=== PATIENT | female | born 1965 | race Caucasian/White ===

== ENCOUNTER 2017-04-28 15:25 | Emergency (ER) | payer OTHER ==
[~2017-04-28] VITALS: Ht 157.5 cm; Wt 73.0 kg
[2017-04-28 15:29] VITALS: BP 141/97; PULSE 112; RESP 16; TEMP 98.4; O2SAT 96
[2017-04-28] MEDS ORDERED: LEXA20TA PO (15:42)
[2017-04-28] MEDS ORDERED: ALPR2TAB3 PO (15:42)
[2017-04-28] MEDS ORDERED: LAMI200T PO (15:42)
[2017-04-28] MEDS ORDERED: ACYC800T PO (17:15)
[2017-04-28] MEDS ORDERED: BACT800T5 PO (17:15)
--- NOTE | 2017-04-28 17:15 | PD ---
HPI Chief Complaint: Skin Problem Time Seen by Provider: 16:50 Travel History International Travel<30 days: No Contact w/Intl Traveler<30days: No Traveled to known affect area: No History of Present Illness HPI 51-year-old female presents to the emergency room for evaluation of a rash to her left neck region since yesterday. Rash is painful. No itching or burning. Pain radiates into her neck and ear. She believes she was bitten by a bug because of the acute onset of symptoms. While walking next to a plant yesterday , she felt something pinch her and then noticed swelling, pain, and bumps after that. She took ibuprofen yesterday for the pain. Patient has not taken anything today because she has not eaten food. She states her neck is sore when she swallows. No fever, chills, nausea, or vomiting. Patient also reports headache from falling off her horse 5 days ago. She landed directly on the back of her head. There is no loss of consciousness. No nausea or vomiting. States since then she has had a mild headache. No changes in thinking or confusion. She is not on blood thinners. She also complains of a small red, painful pimple to her left anglican that has been there for 2 weeks. Patient squeezed it and made it worse and is concerned that it is draining into her neck. PFSH Past Medical History Anxiety: Yes Depression: Yes Medical other: Yes (VERTIGO) ?: Not Past Surgical History Cholecystectomy: Yes Other Surgery: Yes (L BREAST SURGERY) Social History Alcohol Use: No Tobacco Use: No Substance Use: No Allergies-Medications (Allergen,Severity, Reaction): Coded Allergies: No Known Allergies (Unverified , 04/28/17) Reported Meds & Prescriptions Reported Meds & Active Scripts Active Reported Alprazolam 2 Mg Tab 2 Mg PO HS PRN Lexapro (Escitalopram Oxalate) 20 Mg Tab 60 Mg PO DAILY Lamictal (Lamotrigine) 200 Mg Tab 400 Mg PO HS Review of Systems Except as stated in HPI: all other systems reviewed are Neg Physical Exam Narrative GENERAL: Well-nourished, well-developed female in no acute distress. Afebrile. Ambulatory. SKIN: Focused skin assessment warm/dry. There are 3 skin colored papules to the left lateral neck just below the ear. They are tender to palpation. No erythema. No lymphangitis. No induration, fluctuance, drainage, or excoriations. The left submandibular lymph node is tender and slightly enlarged. There is an indurated area in the left anglican which measures about 1 cm in diameter. It is fluctuant but there is no pointing or drainage. There is a zone of inflammation around it but no lymphangitis. HEAD: Normocephalic. EYES: No scleral icterus. No injection or drainage. ENT: Mucosa pink and moist. No erythema or exudates. No uvular edema. No uvular , palatal, or tonsillar deviation. Airway patent. Nasal turbinates appear normal without nasal blood, purulent drainage or septal hematoma. EARS: Bilateral pinnae and external canals appear within normal limits. Bilateral tympanic membranes without erythema, dullness or perforation. No hemotympanum. NECK: Supple, trachea midline. No JVD or lymphadenopathy. CARDIOVASCULAR: Regular rate and rhythm without murmurs, gallops, or rubs. RESPIRATORY: Breath sounds equal bilaterally. No accessory muscle use. NEUROLOGICAL: Awake and alert. Cranial nerves II through XII intact. Motor and sensory grossly within normal limits. Five out of 5 muscle strength in all muscle groups. Normal speech. Data Data Last Documented VS Vital Signs Date Time Temp Pulse Resp B/P Pulse Ox O2 Delivery O2 Flow Rate FiO2 04/28/17 15:29 98.4 112 16 141/97 96 MDM Medical Decision Making Medical Screen Exam Complete: Yes Emergency Medical Condition: Yes Medical Record Reviewed: Yes Differential Diagnosis Shingles, folliculitis, abscess, cellulitis Narrative Course 51-year-old female presents to the emergency room for evaluation of a painful rash to her left lateral neck since yesterday. Patient thought she got bit by a bug because of the acute onset of symptoms. Physical exam reveals 3 skin colored papules to the left lateral neck just below the ear. They are tender to palpation. No erythema. No lymphangitis. No induration, fluctuance, drainage, or excoriations. The left submandibular lymph node is tender and slightly enlarged. Throat is clear without redness or edema. Ear is without evidence of infection. There does not appear to be any bacterial skin infection. Given painful rash, I have concern for shingles. Patient will be placed on acyclovir. Concerning her head injury 5 days ago, [place] CT rule excludes need for imaging at this time. There are no focal neurological deficits. She does have a small, developing abscess to her left anglican that is spontaneously draining purulent fluid. It is mild without significant erythema. No lymphangitis. For this patient will be placed on Bactrim. Patient was told to follow up with a primary care physician or return for worsening symptoms. She understands and agrees to plan. Diagnosis Primary Impression: Shingles Qualified Code: B02.9 - Herpes zoster without complication Additional Impressions: Head injury Qualified Code: S09.90XA - Head injury, initial encounter Abscess Referrals: Primary Care Physician Patient Instructions: Abscess (ED), General Instructions, Head Injury (ED), Shingles (ED) Additional Instructions: Rest and drink plenty of fluids. Take acyclovir as directed, until gone. Follow up with a primary care physician. Return to emergency room for worsening symptoms, as discussed. Med/Other Pt SpecificInfo: Prescription(s) given Disposition: 01 DISCHARGE HOME Condition: Stable Lindy Morales Apr 28, 2017 17:15
[2017-04-28 17:29] VITALS: BP 123/79
== END 2017-04-28 17:37 | disposition home or self-care (01) ==
LOC: PHEFT 15:25
DX: B02.9 Zoster without complications (principal); S09.90XA Unspecified injury of head, initial encounter; R42 Dizziness and giddiness; V80.010A Animal-rider injured by fall from or being thrown from horse in noncollision accident, initial encounter; Y93.52 Activity, horseback riding; Y92.9 Unspecified place or not applicable; Y99.8 Other external cause status
CPT/HCPCS: 99284

== ENCOUNTER → 2017-08-12 | Day surgery (SDC) | payer OTHER ==
[~2017-08-12] VITALS: Ht 157.5 cm; Wt 72.0 kg
[~2017-08-12] MED LIST: ACETAMINOPHEN 325 MG TAB PO PRN; ALPR2TAB3 PO; CHLORHEXIDINE GLUCONATE 2 % 1 PACK (2 CLOTHS) TOPICAL PRN; CYCL1TAB29 PO; CYMB60CA PO; FIORINAL2 PO; HYALURONIDASE/LIDOCAINE/EPINEPHRINE/BUPIVACAINE 6 ML SYR ONE; HYALURONIDASE/LIDOCAINE/EPINEPHRINE/BUPIVACAINE 6 ML SYR RIGHT EYE ONE; INSULIN HUMAN REGULAR 1,000 UNITS/10 ML VIAL SQ PRN; LACTATED RINGER'S 1000 ML IV PRN; LAMI200T PO; LEXA20TA PO; LIDOCAINE HCL 1% PF 30 ML VIAL ONE; LIDOCAINE HCL 2% PF 5 ML VIAL ONE; MECL12.574 PO; METOPROLOL TARTRATE 25 MG TAB PO PRN; POVIDONE IODINE 5% (ANTISEPSIS KIT) 4 APPLICATIONS EACH NARE PRN; PROPARACAINE HCL 0.5% OPHT SOLN 15 ML BTL RIGHT EYE ONE; PROPOFOL 200 MG/20 ML AMP ONE; SODIUM CHLORID 0.9% 500 ML INJ 500 ML ONE; SODIUM CHLORID 0.9% 500 ML IV PRN; TOBRAMYCIN/DEXAMETHASONE OPTH OINT 3.5 GM TUBE ONE; [UNRECOGNIZED DRUG - CODE] PO
[2017-08-12] MEDS: TROPICAMIDE 1% OPHT SOLN 15 ML BTL RIGHT EYE SCH ×4 (07:50→08:05)
[2017-08-12] MEDS: PHENYLEPHRINE HCL 10% OPTH SOLN 5 ML BTL RIGHT EYE SCH ×4 (07:50→08:05)
[2017-08-12] MEDS: CYCLOPENTOLATE HCL 1% OPHT SOLN 2 ML BTL RIGHT EYE SCH ×4 (07:50→08:05)
[2017-08-12 08:00] VITALS: PULSE 81
[2017-08-12 08:25] VITALS: PULSE 87
[2017-08-12 08:35] VITALS: PULSE 94
[2017-08-12 09:50] VITALS: BP 137/64; PULSE 77; RESP 16; TEMP 98.5; O2SAT 98
--- NOTE | 2017-08-12 12:46 | MP ---
cc: TESFAYE BEAR M.D. [facility] #: [id number] DATE: 08/12/2017 PREOPERATIVE DIAGNOSIS: Visually significant cataract right eye. POSTOPERATIVE DIAGNOSIS: Visually significant cataract right eye. OPERATION: Phacoemulsification with posterior chamber lens implantation, right eye. SURGEON: Tesfaye Bear MD ANESTHESIA: Retrobulbar with MAC. COMPLICATIONS: None. PROCEDURE: After informed consent was obtained, the patient was brought into the operative suite and placed on appropriate monitors by the Anesthesia Service. The patient had received a prior retrobulbar injection of local anesthetic by the Anesthesia Service in the holding area. The patient's operative eye was then prepped and draped in the usual sterile fashion. A wire lid speculum was placed. A paracentesis incision was made in the peripheral cornea with a 1 mm jose manuel keratome. The anterior chamber was filled with viscoelastic. The anterior chamber was then entered through a stepped, clear corneal incision using a sharp 3 mm jose manuel keratome. A circular tear capsulorrhexis was then made with a bent needle cystitome. Following hydrodissection of the lens nucleus with balanced saline, phacoemulsification of the nucleus was performed using a modified chopping technique. The remaining cortex was removed with irrigation/aspiration. The prior two procedures were both performed using the handpieces of the [employer] phaco unit. The capsular bag was then filled with viscoelastic. The intraocular lens was then injected into the capsular bag and positioned. The type of intraocular lens and its power can be found elsewhere in this chart. The remaining viscoelastic was then removed from the anterior chamber with the IA handpiece. The anterior chamber was reformed with balanced saline. The wound was then closed securely with stromal hydration. It was found to be watertight to an intraocular pressure of at least 30 mmHg by palpation. A small amount of balanced salt solution was then removed through the paracentesis site and the intraocular pressure at the end of the case was approximately 20 by palpation. All drapes were then removed. TobraDex ointment was then placed in the eye, which was closed beneath a semi-pressure patch dressing. The patient tolerated this procedure well and left the operating room awake and alert. The patient is to follow-up in my office in the morning. Tesfaye Bear MD [facility]/SSB /10:01 AM /12:36 PM
== END | disposition home or self-care (01) ==
LOC: PHSDC 07:14
PROVIDERS: ATTEND Optometrist Occupational Vision
DX: H25.811 Combined forms of age-related cataract, right eye (principal); F32.9 Major depressive disorder, single episode, unspecified; G43.909 Migraine, unspecified, not intractable, without status migrainosus; R42 Dizziness and giddiness; F17.210 Nicotine dependence, cigarettes, uncomplicated; Z79.899 Other long term (current) drug therapy
CPT/HCPCS: J7040; V2632

== ENCOUNTER 2018-05-20 12:13 | Inpatient (IN) ==
[2018-05-20] MEDS ORDERED: Heparin 10,000 UNITS/10 ML Vial (for IV use) IV.PUSH STA (12:18)
[2018-05-20] MEDS ORDERED: fentaNYL Citrate Inj 100 MCG/2 ML Ampul ONE (12:23)
[2018-05-20] MEDS ORDERED: Heparin/NS PF Inj 1,500 ML ONE (12:23)
[2018-05-20] MEDS ORDERED: Heparin 10,000 UNITS/10 ML Vial (for IV use) ONE (12:23)
--- NOTE | 2018-05-20 12:28 | ED ---
HPI General Chief Complaint: STEMI Alert Stated Complaint: Stemi/Evac Source: patient Mode of arrival: EMS Limitations: no limitations History of Present Illness HPI narrative: 3-year-old female complaint of chest pain. Patient states the pain started about 45 minutes prior to arrival. Patient states the pain is severe substernal pressure and sharp pain with radiation to the neck. Patient denies any history of CAD. Patient states that she had nausea diaphoresis with the chest pain. Patient denies any cough congestion fever chills. EMS was called. EKG was done by EMS and show mild ST elevation in inferior leads. STEMI alert was called from the field. Patient was brought in for evaluation. complaint: chest pain Complete Quality Measures for STEMI Alert Patients STEMI Alert: Yes Onset (ago): minute(s) (45) Time: 12:23 Duration: constant Onset: during rest Pain location: substernal Severity: moderate Severity scale (1-10): 7 Quality: aching, heaviness and sharp Pain radiation: neck Relieving factors: nitroglycerin and remaining still Exacerbating factors: nothing Context: other Associated symptoms: diaphoresis Treatments prior to arrival chest pain: aspirin, nitroglycerin and oxygen Related Data Home Medications Medication Instructions Recorded Confirmed alprazolam 1 mg PO BID 05/20/18 05/20/18 [id number]-[id number]-[id number] 1 cap PO Q4H PRN MDD 25 05/20/18 05/20/18 [Fioricet] duloxetine [Cymbalta] 60 mg PO DAILY 05/20/18 05/20/18 lamotrigine [Lamictal] 400 mg PO HS 05/20/18 05/20/18 meclizine 25 mg PO DAILY PRN 05/20/18 05/20/18 mirtazapine 45 mg PO DAILY 05/20/18 05/20/18 quetiapine 50 mg PO HS 05/20/18 05/20/18 Allergies Allergy/AdvReac Type Severity Reaction Status Date / Time No Known Allergies Allergy Verified 05/20/18 12:23 Review of Systems Except as stated in HPI: all other systems reviewed are negative [facility] Medical History Medical History Anxiety (Acute) Bipolar 1 disorder (Acute) Hypercholesterolemia (Acute) Surgical History Surgical History History of cholecystectomy (Acute) Social History Social History Substance History: No History of Abuse Second Hand Smoke Exposure: Yes Smoking Status: Current some day smoker Tobacco Type: Cigarettes How Often Do You Have a Drink Containing Alcohol: Never Recent Travel in [facility] within the Last 8 Weeks: No Recent Out of Country Travel within the Last 8 Weeks: No Exam Narrative Exam Narrative: GENERAL: Well-nourished, well-developed patient. SKIN: Focused skin assessment warm/dry. HEAD: Normocephalic. EYES: No scleral icterus. No injection or drainage. NECK: Supple, trachea midline. No JVD or lymphadenopathy. CARDIOVASCULAR: Regular rate and rhythm without murmurs, gallops, or rubs. RESPIRATORY: Breath sounds equal bilaterally. No accessory muscle use. GASTROINTESTINAL: Abdomen soft, non-tender, nondistended. MUSCULOSKELETAL: No cyanosis, or edema. BACK: Nontender without obvious deformity. No CVA tenderness. Neurologic exam normal. Course Initial Documented Vital Signs Temperature 99 F 05/20/18 12:15 Pulse Rate 100 H 05/20/18 12:15 Respiratory Rate 24 05/20/18 12:15 Blood Pressure 145/86 H 05/20/18 12:15 Pulse Oximetry 97 05/20/18 12:15 Last Documented Vital Signs Temperature 98.4 F 05/21/18 11:00 Pulse Rate 87 05/21/18 13:00 Respiratory Rate 16 05/21/18 11:00 Blood Pressure 135/65 05/21/18 11:00 Pulse Oximetry 94 L 05/21/18 11:00 Medical Decision Making MDM Narrative Medical decision making narrative: 53-year-old female with chest pain. EKG shows mild ST elevation in 2 3 and aVF. STEMI alert was called. Patient was given Nitropaste 1 inch on chest wall. Heparin 4000 units IV. Patient was given aspirin [address] to the ED by EMS. Patient also was given nitroglycerin sublingually and morphine IV by EMS on the way to the ED. Patient emergently transported to [facility]. Dr. Zamora accepted the transfer. Lab Data Result diagrams: 05/21/18 05:39 05/21/18 05:39 Lab Results 05/20/18 05/20/18 05/20/18 Range/Units 12:25 12:25 12:25 WBC (4.0-11.0) th/mm3 RBC (4.00-5.30) mil/mm3 Hgb (11.6-15.3) gm/dL POC Hgb (Calc) 13.9 (11.6-15.3) g/dL Hct (35.0-46.0) % POC Hct 41.0 (35-46.0) % MCV (80.0-100.0) fL MCH (27.0-34.0) pg MCHC (32.0-36.0) % RDW (11.6-17.2) % Plt Count (150-450) th/mm3 MPV (7.0-11.0) fL Neut % (Auto) (16.0-70.0) % Lymph % (Auto) (9.0-44.0) % [place] % (Auto) (0.0-8.0) % Eos % (Auto) (0.0-4.0) % Baso % (Auto) (0.0-2.0) % Neut # (Auto) (1.8-7.7) th/mm3 Lymph # (Auto) (1.0-4.8) th/mm3 [place] # (Auto) (0.0-0.9) th/mm3 Eos # (Auto) (0.0-0.4) th/mm3 Baso # (Auto) (0.0-0.2) th/mm3 WBC Differential Differential Comment PT 9.8 (9.8-11.6) sec INR 1.0 Ratio APTT 23.8 L (24.3-30.1) sec POC Sodium 141 (137-144) mmol/L Sodium 142 (136-145) meq/L POC Potassium 4.9 (3.6-5.0) mmol/L Potassium 4.9 (3.5-5.1) meq/L POC Chloride 105 (102-111) mmol/L Chloride 110 H (98-107) meq/L Carbon Dioxide 23.1 (21.0-32.0) meq/L Anion Gap 9 (5-15) meq/L POC BUN 11 (5-21) mg/dL BUN 11 (7-18) mg/dL Creatinine 0.74 (0.50-1.00) mg/dL POC Creatinine 0.7 (0.6-1.3) mg/dL Estimated GFR 82 L (>89) mL/min POC Glucose 111 H (68-110) mg/dL Random Glucose 109 H (74-106) mg/dL Calcium 8.3 L (8.5-10.1) mg/dL Magnesium 2.0 (1.5-2.5) mg/dL Total Bilirubin 0.2 (0.2-1.0) mg/dL AST 10 L (15-37) U/L ALT 15 (10-53) U/L Alkaline Phosphatase 96 (45-117) U/L Total Creatine Kinase 50 (26-192) U/L Troponin I Less than 0.02 L (0.02-0.05) ng/mL B-Natriuretic Peptide (0-100) pg/mL Total Protein 6.6 (6.4-8.2) g/dL Albumin 3.2 L (3.4-5.0) g/dL 05/20/18 05/20/18 05/21/18 Range/Units 12:25 12:25 05:39 WBC 14.2 H 12.4 H (4.0-11.0) th/mm3 RBC 4.83 4.73 (4.00-5.30) mil/mm3 Hgb 14.1 13.8 (11.6-15.3) gm/dL POC Hgb (Calc) (11.6-15.3) g/dL Hct 43.3 41.7 (35.0-46.0) % POC Hct (35-46.0) % MCV 89.6 88.3 (80.0-100.0) fL MCH 29.3 29.2 (27.0-34.0) pg MCHC 32.7 33.0 (32.0-36.0) % RDW 13.5 13.4 (11.6-17.2) % Plt Count 345 286 (150-450) th/mm3 MPV 7.9 7.6 (7.0-11.0) fL Neut % (Auto) 67.7 60.1 (16.0-70.0) % Lymph % (Auto) 24.1 31.8 (9.0-44.0) % [place] % (Auto) 5.9 4.7 (0.0-8.0) % Eos % (Auto) 1.8 2.7 (0.0-4.0) % Baso % (Auto) 0.5 0.7 (0.0-2.0) % Neut # (Auto) 9.6 H 7.5 (1.8-7.7) th/mm3 Lymph # (Auto) 3.4 4.0 (1.0-4.8) th/mm3 [place] # (Auto) 0.8 0.6 (0.0-0.9) th/mm3 Eos # (Auto) 0.3 0.3 (0.0-0.4) th/mm3 Baso # (Auto) 0.1 0.1 (0.0-0.2) th/mm3 WBC Differential . . Differential Comment Auto diff final Auto diff final PT (9.8-11.6) sec INR Ratio APTT (24.3-30.1) sec POC Sodium (137-144) mmol/L Sodium (136-145) meq/L POC Potassium (3.6-5.0) mmol/L Potassium (3.5-5.1) meq/L POC Chloride (102-111) mmol/L Chloride (98-107) meq/L Carbon Dioxide (21.0-32.0) meq/L Anion Gap (5-15) meq/L POC BUN (5-21) mg/dL BUN (7-18) mg/dL Creatinine (0.50-1.00) mg/dL POC Creatinine (0.6-1.3) mg/dL Estimated GFR (>89) mL/min POC Glucose (68-110) mg/dL Random Glucose (74-106) mg/dL Calcium (8.5-10.1) mg/dL Magnesium (1.5-2.5) mg/dL Total Bilirubin (0.2-1.0) mg/dL AST (15-37) U/L ALT (10-53) U/L Alkaline Phosphatase (45-117) U/L Total Creatine Kinase (26-192) U/L Troponin I (0.02-0.05) ng/mL B-Natriuretic Peptide 5 (0-100) pg/mL Total Protein (6.4-8.2) g/dL Albumin (3.4-5.0) g/dL 05/21/18 Range/Units 05:39 WBC (4.0-11.0) th/mm3 RBC (4.00-5.30) mil/mm3 Hgb (11.6-15.3) gm/dL POC Hgb (Calc) (11.6-15.3) g/dL Hct (35.0-46.0) % POC Hct (35-46.0) % MCV (80.0-100.0) fL MCH (27.0-34.0) pg MCHC (32.0-36.0) % RDW (11.6-17.2) % Plt Count (150-450) th/mm3 MPV (7.0-11.0) fL Neut % (Auto) (16.0-70.0) % Lymph % (Auto) (9.0-44.0) % [place] % (Auto) (0.0-8.0) % Eos % (Auto) (0.0-4.0) % Baso % (Auto) (0.0-2.0) % Neut # (Auto) (1.8-7.7) th/mm3 Lymph # (Auto) (1.0-4.8) th/mm3 [place] # (Auto) (0.0-0.9) th/mm3 Eos # (Auto) (0.0-0.4) th/mm3 Baso # (Auto) (0.0-0.2) th/mm3 WBC Differential Differential Comment PT (9.8-11.6) sec INR Ratio APTT (24.3-30.1) sec POC Sodium (137-144) mmol/L Sodium 141 (136-145) meq/L POC Potassium (3.6-5.0) mmol/L Potassium 4.0 D (3.5-5.1) meq/L POC Chloride (102-111) mmol/L Chloride 106 (98-107) meq/L Carbon Dioxide 27.3 (21.0-32.0) meq/L Anion Gap 8 (5-15) meq/L POC BUN (5-21) mg/dL BUN 8 (7-18) mg/dL Creatinine 0.64 (0.50-1.00) mg/dL POC Creatinine (0.6-1.3) mg/dL Estimated GFR Greater than 89 (>89) mL/min POC Glucose (68-110) mg/dL Random Glucose 88 (74-106) mg/dL Calcium 9.2 D (8.5-10.1) mg/dL Magnesium (1.5-2.5) mg/dL Total Bilirubin (0.2-1.0) mg/dL AST (15-37) U/L ALT (10-53) U/L Alkaline Phosphatase (45-117) U/L Total Creatine Kinase (26-192) U/L Troponin I (0.02-0.05) ng/mL B-Natriuretic Peptide (0-100) pg/mL Total Protein (6.4-8.2) g/dL Albumin (3.4-5.0) g/dL Discharge Plan Discharge Disposition Patient Disposition: 30 Still Patient Discharge Condition Condition: Stable Discharge Order Discharge Orders: Discharge Order (Routine); Ordered 05/21/18 Ordered By: Zahira Rg Discharge Details Discharge Comment: chest pain Discharge Problem: ST elevation (STEMI) myocardial infarction Physicians Team ED Provider: Simon Adam Primary Care Provider: Primary Care Slaone Goyal Attending Provider: Eliezer Gonzalez Discharge Interventions Interventions: ED Discharge Assessment Last Done: 05/20/18 13:04 Status ED Status: Left Department Discharge Information Discharge Date/Time: 05/21/18 12:33
[2018-05-20] MEDS ORDERED: Sod Chloride 0.9% Inj 1,000 ML IV.SIG SCH (12:30)
[2018-05-20] MEDS ORDERED: Lidocaine PF 1% Inj 30 ML Vial ONE (12:31)
[2018-05-20 12:46] LABS: Baso # (Auto) 0.1 th/mm3 (0.0-0.2); Baso % (Auto) 0.5 % (0.0-2.0); Eos # (Auto) 0.3 th/mm3 (0.0-0.4); Eos % (Auto) 1.8 % (0.0-4.0); Hematocrit 43.3 % (35.0-46.0); Hemoglobin 14.1 gm/dL (11.6-15.3); Lymph # (Auto) 3.4 th/mm3 (1.0-4.8); Lymph % (Auto) 24.1 % (9.0-44.0); Mean Corpuscular HGB Conc 32.7 % (32.0-36.0); Mean Corpuscular Hemoglobin 29.3 pg (27.0-34.0); Mean Corpuscular Volume 89.6 fL (80.0-100.0); Mean Platelet Volume 7.9 fL (7.0-11.0); Mono # (Auto) 0.8 th/mm3 (0.0-0.9); Mono % (Auto) 5.9 % (0.0-8.0); Neut # (Auto) 9.6 th/mm3 (1.8-7.7); Neut % (Auto) 67.7 % (16.0-70.0); Platelet Count 345 th/mm3 (150-450); Red Blood Count 4.83 mil/mm3 (4.00-5.30); Red Cell Distribution Width 13.5 % (11.6-17.2); White Blood Count 14.2 th/mm3 (4.0-11.0)
[2018-05-20 12:55] LABS: Activated Partial Thrombo Time 23.8 sec (24.3-30.1); Prothrombin Time 9.8 sec (9.8-11.6)
--- NOTE | 2018-05-20 12:59 | MB ---
cc: Rodolfo Zamora MD DATE: 05/20/2018 REASON FOR CONSULTATION: ST elevation AL. HISTORY OF PRESENT ILLNESS: This is a 53-year-old female. She has no prior history of known heart disease, only a history of depression. She now presents with symptoms of acute onset of substernal chest pain. Upon arrival to the emergency department, she was found to have inferior ST elevation with ongoing chest pain symptoms, radiation to the jaw and the left arm, associated with diaphoresis, shortness of breath, and nausea. ST elevation myocardial infarction alert was initiated. PAST MEDICAL HISTORY: Anxiety, bipolar disorder and hyperlipidemia. SOCIAL HISTORY: Denies any tobacco, alcohol or drug use. FAMILY HISTORY: There is a family history of early coronary disease or sudden cardiac . REVIEW OF SYSTEMS: A 12-point review of systems was performed, negative unless otherwise noted in history of present illness. PHYSICAL EXAMINATION: GENERAL: The patient is in moderate distress. HEENT: Shows pupils reactive to light and accommodation. Extraocular movements are intact. NECK: No elevation of jugular venous distention. No thyromegaly. No lymphadenopathy. No carotid bruits. LUNGS: Clear to auscultation bilaterally. CARDIOVASCULAR: Regular rate and rhythm without murmurs, rubs or gallops. ABDOMEN: Nontender, nondistended with good bowel sounds. No hepatosplenomegaly. EXTREMITIES: No clubbing, cyanosis or edema. Good peripheral pulses. NEUROLOGIC: Cranial nerves intact. Motor, sensory grossly intact. LABORATORY DATA: Pending. ELECTROCARDIOGRAM: Inferior ST elevation, normal sinus rhythm. ASSESSMENT: 1. ST elevation myocardial infarction. 2. Depression and anxiety disorder. PLAN: Risks, benefits and alternatives were discussed with the patient. The patient was agreeable to emergent cardiac catheterization. No bleeding complications noted. We will initiate guideline directed medical therapy and 2-D echocardiogram. Rodolfo Zamora MD [place]/[facility] , 12:39 PM , 12:57 PM
[2018-05-20] MEDS ORDERED: Atropine Inj 1 MG/ML Vial IV.PUSH PRN (13:05)
[2018-05-20] MEDS ORDERED: Lidocaine 1% Inj 50 ML Vial INFILTRATN PRN (13:05)
[2018-05-20 13:06] LABS: Alanine Aminotransferase 15 U/L (10-53); Albumin 3.2 g/dL (3.4-5.0); Anion Gap 9 meq/L (5-15); Aspartate Aminotransferase 10 U/L (15-37); Blood Urea Nitrogen 11 mg/dL (7-18); Calcium 8.3 mg/dL (8.5-10.1); Carbon Dioxide 23.1 meq/L (21.0-32.0); Chloride 110 meq/L (98-107); Glomerular Filtration Rate 82 mL/min (>89); Glucose,Random 109 mg/dL (74-106); Potassium 4.9 meq/L (3.5-5.1); Sodium 142 meq/L (136-145)
[2018-05-20 13:10] LABS: Alkaline Phosphatase 96 U/L (45-117); Total Protein 6.6 g/dL (6.4-8.2)
[2018-05-20 13:11] LABS: Creatine Kinase 50 U/L (26-192)
--- NOTE | 2018-05-20 13:33 | CATHPROC ---
[facility] HIS Report Study Information Study Number Admission Scheduled Start Study Start [id number] May 20 2018 12:13PM 05/20/2018 May 20 2018 12:31PM [place] [facility] Cardiac Catheterization Admit Source Facility Department Emergency department [facility] Physician and Clinical Staff Initial Rodolfo Richey Marker HandBreann Mills,RN Marker Handjoao Hu RN, Donta Recorder Michelle Lanza,RT(R) (BS) Scrub Yolanda Tubbs,RT(R) Procedures Performed Procedure Location (Site) Vessel Name Angiogram LV AO Arch (A1) Aorta Angiogram LV LV Ventricle Coronary Angiograms LCA Left Coronary Coronary Angiograms RCA Right Coronary L Heart Cath Equipment Time Community Cultural Development Officer Description Size Mfg Part Number Used/Scraped COPILOT VALVE, BLEEDBACK [id number] 12:41 [employer] Used CONTROL *[id number] TRANSDUCER, TRUWAVE [id number] 12:41 Digitick ESTEBAN * Used W/STOCKCOCK *[id number] [phone] *[id number] [id number] *[id number] 12:41 payleven BLANKET,WARM AIR CCL * Used *[id number] 12:41 [employer]leven PACK, CCL CUSTOM * Used *[id number] 12:41 payleven SUPPORT, ARTERIAL ADULT 19458 *[id number] Used [id number] 12:41 [employer] PACER PEN, SKIN DUAL W/ RULER * Used *[id number] 12:43 MEDTRONIC JL 3.5 DXTERITY CATHETER FR 5 Used *[id number] 12:43 MEDTRONIC JR 5.0 DXTERITY CATHETER fr 5 [id number] Used BAND, RADIAL COMPRESSION TR [id number] 13:01 [employer] MEDICAL 24CM Used SHORT 24 *[id number] BAND, RADIAL COMPRESSION TR [id number] 13:02 [employer] MEDICAL 24CM Used SHORT 24 *[id number] SHEATH, FR6 RADIAL PRELUDE 12:41 [employer] Player FR 6 [id number] Used EASE 11CM [id number] 12:41 [employer] Player WIRE, EXCHANGE 260CM 3MMJ 260CM Used *[id number] 12:41 NAMIC MANIFOLD, 4 PORT * Used *[id number] [id number] 12:57 NAMIC TUBING, HIGH PRESSURE 20" 20" Used *[id number] 12:41 NYCOMED OMNIPAQUE, 350 MG, 150ML 150ML [id number] Used 12:41 NYCOMED OMNIPAQUE, 350 MG, 150ML 150ML [id number] Used WIRE, RUNTHROUGH NS FLOPPY [id number] 12:45 [employer] A Partager 300CM Used .014 300CM *[id number] Equipment Model, Serial, Lot Number and Expiration Data Description Model Number Serial Number Lot Number Expiration Date JR 5.0 DXTERITY CATHETER [id number] 07-07-2020 History: Current Medications Medication Dosage/Unit Route Frequency Last Date/Time Taken ASA History: Allergies Allergy Reaction No Known Allergies History: Risk Factors Family History of Hypertension Dyslipidemia Previous [place] Previous Heart Failure Premature CAD Yes Yes No No No Prior Valve Prior PCI Prior CABG Surgery No No No Cerebrovascular Peripheral Artery Chronic Lung On Dialysis Diabetes Disease Disease Disease No No No No No History: Symptoms/Diagnosis Selection Items Chest pain History: Stress Tests Stress or Imaging Studies Performed No History: Other Current Smoker Method Packs a Day Years Used Pack Years Yes Cigarettes 1 40 40 Labs Hgb (g/dl) Hct (%) 11.60-17.00 35.00-51.00 13.9 41 Glucose (mg/dl) BUN (mg/dl) Creatinine (mg/dl) BUN:Creatinine (1:x) 74.00-106.00 7.00-18.00 0.50-1.30 10.00-20.00 11 11 0.7 15.7 Na (meq/l) K (meq/l) Cl (meq/l) 136.00-145.00 3.50-5.10 98.00-107.00 141 4.9 105 CPK-MB (ng/ML) 0.50-3.60 Not Drawn Medication Medication Total Dose (Bolus/Oral) Medication Total Dosage/Unit 1% XYLOCAINE 1 mL ANGIOMAX BOLUS 10.5 mL FENTANYL 50 mcg VERSED 2 mg Medications (Bolus/Oral) Medication Time Given Dosage/Unit Administered By Reason VERSED 05/20/2018 12:41:55 PM 2 mg Breann Crockett 2 mg VERSED given in lab by Breann Crockett, RN in Left Antecubital via Peripheral IV. FENTANYL 05/20/2018 12:42:11 PM 50 mcg Breann Crockett 50 mcg FENTANYL given in lab by Breann Crockett, CÉSAR in Left Antecubital via Peripheral IV. 1% XYLOCAINE 05/20/2018 12:44:36 PM 1 mL Rodolfo Zamora 1 mL 1% XYLOCAINE given in lab by Rodolfo Zamora in Right Radial via Subcutaneous. ANGIOMAX BOLUS 05/20/2018 12:48:22 PM 10.5 mL Donta Hu RN 10.5 mL ANGIOMAX BOLUS given in lab by Donta Hu RN in Left Antecubital via Peripheral IV. Medication (Drip) Medication Time Given Dosage/Unit Concentration/Unit Diluent (ml) Solution ANGIOMAX DRIP 05/20/2018 12:50:42 PM 1.738 mg/kg/hr 250 mg 50 NaCl .9 1.738 mg/kg/hr ANGIOMAX DRIP given in lab by Donta Hu RN in Left Antecubital via Peripheral IV. P ump/Drip Flow = 25.2 ml/hr using NaCl .9 with a concentration of 250 mg in 50 ml. ANGIOMAX DRIP 05/20/2018 12:55:04 PM 0 units/hr 0 D5W STOPPED 0 units/hr ANGIOMAX DRIP STOPPED given in lab by Donta Hu RN. Pump/Drip Flow = 0 ml/hr using D5W. NITROGLYCERIN DRIP 05/20/2018 12:46:32 PM 200 mcg 200 mcg NITROGLYCERIN DRIP given in lab by Rodolfo Zamora in Right Radial via Intra-arterial. Initial Case Assessment Cardiovascular HR Rhythm NIBP Chest Pain 86 reg 136/84 8 Edema Present Skin color Skin None Normal Warm Dry Circulatory - Right Pulses Dorsalis Pedis Femoral 2 2 Scale (0,1,2,3,4,d) Circulatory - Left Pulses Dorsalis Pedis Femoral 2 2 Scale (0,1,2,3,4,d) Circulatory - Lower Extremities Color Lower Right Color Lower Left Normal Normal Neurological State Oriented to time-place- Alert Moves all extremities person Respiration - General Respiration Rate SpO2 (%) O2 (lpm) (B/min) 20 100 2 Chronological Log Time Study Chronological Log 12:23:52 Emergency Room notified that [facility] is ready. 12:27:58 Emergency Room called [facility] to see if we are ready. Informed for the second time that ca th lab is ready. 12:35:40 Patient arrived via Bed. 12:35:48 Patient Name, D.O.B, / Armband Verified By R.N. 12:35:50 Consent signed by the physician and the patient and verified by the [facility] staff. 12:35:51 Pre-op and post- op instructions given; patient acknowledges understanding of instructions. 12:35:55 Immediate Presedation assesment performed by physician. 12:36:55 Disposable Defibrillator Pads Placed On Patient. Vitals capture started with the following parameters, Patient=Adult, Interval=5 min, Initial Pr wbvkxr=290 mmHg, 12:38:02 Deflation Rate=5 mmHg, Cuff placed on Right Arm 12:38:49 TPAB=524/78 mmhg, Pain=8, Myles=10, Hernandez=2 12:41:55 2 mg VERSED given in lab by Breann Crockett RN in Left Antecubital via Peripheral IV. 12::55 [place]ucho Prominences Protected 12:41:56 A # 18 IV was noted in the Antecubital (left). Grade = 0 12:42:04 A # 18 IV was noted in the Antecubital (right). Grade = 0 12:42:08 History and physical on the chart or being dictated. Assessment: Initial Case, HR=86 BPM, Rhythm=reg, ZLHU=114/84 mmhg, Chest Pain=8, Edema=None, Co jenelle=Normal, Skin = Warm, Dry Right Pulses: Russ Ped=2, Femoral=2 Left Pulses: Russ Ped=2, Femoral=2 12:42:10 Lower Right Extremities: Color=Normal Lower Left Extremities: Color=Normal Neurological: State=Alert, Ox3, TELLEZ Respiration: Resp=20 B/min, QnM7=179 %, O2=2 lpm 12:42:11 50 mcg FENTANYL given in lab by Breann Crockett RN in Left Antecubital via Peripheral IV. Time Out. Correct patient, correct procedure, correct physician, labs, allergies, and equipment verified with medical laboratory manager 12:42:20 team present. Fire risk assesment completed (see hard stop sheet for coding). Time Out Conc urred by MD and individual staff in procedure. 12:42:30 Case Start 12:43:46 HR=96 bpm, LIFO=914/84 mmhg, FvR1=498.0 %, Resp=14 B/min, Pain=8, Myles=10, Hernandez=2 12:44:36 1 mL 1% XYLOCAINE given in lab by Rodolfo Zamora in Right Radial via Subcutaneous. 12:44:47 Pressure channel 1 zeroed. 12:45:53 Access site was right Radial Artery. A SHEATH, FR6 RADIAL PRELUDE EASE 11CM FR 6 was advanced into the Radial (right) using the Perc utaneous 12:46:02 technique. 12:46:12 Reference ECG taken 12:46:26 Reference ECG taken 12:46:32 200 mcg NITROGLYCERIN DRIP given in lab by Rodolfo Zamora in Right Radial via Intra-arteria l. 12:47:16 In the Radial (right) the SHEATH, FR6 RADIAL PRELUDE EASE 11CM FR [address] by Rodolfo Zamora. 12:48:22 10.5 mL ANGIOMAX BOLUS given in lab by Donta Hu RN in Left Antecubital via Peripheral I V. 12:48:47 HR=94 bpm, UFTW=696/78 mmhg, SpO2=99.0 %, Resp=16 B/min, Pain=8, Myles=10, Hernandez=2 12:48:50 The LCA was injected and visualized at various angles. OMNIPAQUE, 350 MG, 150ML 150ML used . A JL 3.5 DXTERITY CATHETER FR 5 was advanced over a wire. OMNIPAQUE, 350 MG, 150ML 150ML was us ed for 12:49:38 injections. 1.738 mg/kg/hr ANGIOMAX DRIP given in lab by Donta Hu RN in Left Antecubital via Peripheral IV. Pump/Drip Flow = 12:50:42 25.2 ml/hr using NaCl .9 with a concentration of 250 mg in 50 ml. Recorded Pressure: Ao, HR=94, Condition=Condition 1 12:51:02 (Aorta) Ao 148/81/109 After removing the current catheter a JL 5.0 GUIDE CATHETER FR 6 was advanced over a WIRE, EXCH THOMAS 260CM 12:52:30 3MMJ 260CM. 12:53:46 HR=95 bpm, PEPM=508/79 mmhg, BoH1=647.0 %, Resp=15 B/min, Pain=8, Myles=10, Hernandez=2 12:53:46 The RCA was injected and visualized at various angles. OMNIPAQUE, 350 MG, 150ML 150ML used . 12:55:04 0 units/hr ANGIOMAX DRIP STOPPED given in lab by Donta Hu RN. Pump/Drip Flow = 0 ml/hr using D5W. After removing the current catheter a PIGTAIL ANG. INFINITI CATHETER FR 5 was advanced over a W MICHELLE, EXCHANGE 12:55:19 260CM 3MMJ 260CM. Recorded Pressure: LV, HR=94, Condition=Condition 1 12:57:20 (Left Ventricle) LV 150/4/15 12:58:00 The LV was injected at 12 cc/sec for a total of 24. OMNIPAQUE, 350 MG, 150ML 150ML used. 12:58:47 HR=88 bpm, XKZN=394/78 mmhg, SpO2=99.0 %, Resp=19 B/min, Pain=8, Myles=10, Hernandez=2 12:59:06 The AO Arch (A1) was injected at 20 cc/sec for a total of 40. OMNIPAQUE, 350 MG, 150ML 150M L used. 12:59:41 Catheter was removed 12:59:43 Case End (Physician broke scrub) 13:00:48 Catheter(s) removed without difficulty Radial Compression Device Used. 11 mLs of air placed in BAND, RADIAL COMPRESSION TR SHORT 24 2 4CM. Affected 13:00:58 hand 100 % O2 saturation. 13:01:29 No case complications noted. 13:01:33 Bedside Report will be given. 13:01:36 A Left Heart Cath was performed. 13:03:44 HR=98 bpm, PTIB=497/84 mmhg, Resp=20 B/min, Pain=8, Myles=10, Hernandez=2 13:08:45 HR=94 bpm, MBQW=680/85 mmhg, GiZ0=618.0 %, Resp=17 B/min, Pain=8, Myles=10, Hernandez=2 13:14:21 HR=93 bpm, OHGC=216/84 mmhg, SpO2=99.0 %, Resp=18 B/min, Pain=8, Myles=10, Hernandez=2 13:18:49 HR=97 bpm, XIZT=848/83 mmhg, SpO2=98.0 %, Resp=23 B/min, Pain=8, Myles=10, Hernandez=2 13:23:52 HR=94 bpm, GARY=043/76 mmhg, SpO2=99.0 %, Resp=11 B/min, Pain=8, Myles=10, Hernandez=2 13:28:51 HR=96 bpm, FDSW=332/91 mmhg, SpO2=95.0 %, Resp=9 B/min, Pain=8, Myles=10, Hernandez=2 13:31:20 Vitals capture stopped. 13:33:01 Patient moved to stretcher End Study - Contrast Media Used In Study Contrast Total Opened (mL) Total Used (mL) Total Wasted (mL) Omnipaque 65 65 0 End Study - Maximum Contrast Load Max Contrast Load (mL) 517.9 End Study - Radiation Exposure Fluoro Time (minutes) 2.1 End Study - Sheaths Sheaths Pulled By Sheath Hold Time (min) Yolanda Tubbs End Study - Patient Disposition Complications Transferred To Interventional Outcome No Telemetry Bed No attempt made
--- NOTE | 2018-05-20 13:45 | MA ---
cc: Rodolfo Zamora MD DATE: 05/20/2018 DATE OF PROCEDURE: 05/20/2018 INDICATION FOR PROCEDURE: ST elevation myocardial infarction. PROCEDURE PERFORMED: 1. Fluoroscopy with interpretation. 2. Coronary angiography. 3. Left ventriculography. 4. Left heart catheterization. 5. Ascending aortography. METHOD: Risks, benefits and alternatives were discussed with the patient, the patient understood and consented for the procedure. The patient was brought to the cardiac catheterization lab, placed on the catheterization table, and the right wrist was prepped and draped in sterile fashion. The right wrist was anesthetized with 2% lidocaine. The right radial artery was cannulated and 6-Tongan 7 cm sheath was placed without difficulty. CORONARY ANGIOGRAPHY: 1. Left main has mild luminal irregularities. 2. Left anterior descending coronary has mild luminal irregularities, maybe 30% in the mid segment of the bifurcation of diagonal branch. 3. The circumflex gives rise to 2 obtuse marginal branches, has mild luminal irregularities. 4. Right coronary is a dominant vessel, give rise to a posterior descending branch, has mild luminal irregularities. LEFT HEART CATHETERIZATION: Intraventricular hemodynamics were measured at 150/4 mmHg. LEFT VENTRICULOGRAPHY: Right anterior oblique view, 24 mL contrast injection with good opacification. Left ventricular ejection fraction 60% without regional wall motion abnormalities. ASCENDING AORTOGRAPHY: Ascending aortography is performed in the left anterior oblique view. Ascending aorta is not dilated. No evidence of dissection. CONCLUSIONS: 1. Mild nonobstructive coronary disease. 2. Normal left ventricular systolic function. 3. Normal ascending aorta. PLAN: It appears that the patient's symptoms are noncardiac in etiology. Could possibly be vasospasm, but the EKG has J-point elevation and has concave ST elevation, probably normal variant moreso than acute coronary event. May need GI workup. Left ventricular systolic function is normal. We will monitor her today. Likely can go home tomorrow with outpatient followup with primary care doctor. Call with further questions. We will sign off. Rodolfo Zamora MD [facility] , 01:10 PM , 01:43 PM
[2018-05-20] MEDS ORDERED: Bacitracin Oint 0.9 GM Packet TOPICAL ONE (14:00)
[2018-05-20] MEDS ORDERED: Iohexol 350 MG/ML 100 ML Vial (for Cath Lab) IV.SIG ONE (14:00)
[2018-05-20] MEDS ORDERED: Sodium Chlor 0.9% Inj 250 ML IV.SIG ONE (14:00)
[2018-05-20] MEDS ORDERED: LORazepam 0.5 MG Tablet PO PRN (17:52)
[2018-05-20] MEDS ORDERED: LAMOTRIGINE 400 MG PO SCH (21:00)
[2018-05-20] MEDS ORDERED: QUEtiapine 25 MG Tablet PO SCH (21:00)
[2018-05-20] MEDS ORDERED: Non-Formulary Drug (Quetiapine [Quetiapine] 50 MG) PO SCH (21:00)
[2018-05-20] MEDS ORDERED: lamoTRIgine 100 MG Tablet PO SCH (21:00)
[2018-05-21 06:05] LABS: Baso # (Auto) 0.1 th/mm3 (0.0-0.2); Baso % (Auto) 0.7 % (0.0-2.0); Eos # (Auto) 0.3 th/mm3 (0.0-0.4); Eos % (Auto) 2.7 % (0.0-4.0); Hematocrit 41.7 % (35.0-46.0); Hemoglobin 13.8 gm/dL (11.6-15.3); Lymph % (Auto) 31.8 % (9.0-44.0); Mean Corpuscular Hemoglobin 29.2 pg (27.0-34.0); Mean Corpuscular Volume 88.3 fL (80.0-100.0); Mean Platelet Volume 7.6 fL (7.0-11.0); Mono # (Auto) 0.6 th/mm3 (0.0-0.9); Mono % (Auto) 4.7 % (0.0-8.0); Neut # (Auto) 7.5 th/mm3 (1.8-7.7); Neut % (Auto) 60.1 % (16.0-70.0); Platelet Count 286 th/mm3 (150-450); Red Blood Count 4.73 mil/mm3 (4.00-5.30); Red Cell Distribution Width 13.4 % (11.6-17.2); White Blood Count 12.4 th/mm3 (4.0-11.0)
[2018-05-21 06:36] LABS: Anion Gap 8 meq/L (5-15); Blood Urea Nitrogen 8 mg/dL (7-18); Calcium 9.2 mg/dL (8.5-10.1); Carbon Dioxide 27.3 meq/L (21.0-32.0); Chloride 106 meq/L (98-107); Glomerular Filtration Rate Greater Than 89 mL/min (>89); Glucose,Random 88 mg/dL (74-106); Sodium 141 meq/L (136-145)
[2018-05-21] MEDS ORDERED: Duloxetine 60 MG DR Capsule PO SCH (09:00)
[2018-05-21] MEDS ORDERED: Mirtazapine 15 MG Tablet PO SCH (09:00)
[2018-05-21] MEDS ORDERED: MIRTAZAPINE 45 MG PO SCH (09:00)
--- NOTE | 2018-05-21 09:36 | P.HPIM ---
<Zahira Rg W - Last Filed: 05/21/18 12:32> History of Present Illness Primary Care Physician: No Primary Care Physician Chief Complaint: Chest pain History of Present Illness: This a 53-year-old female patient with past medical history which includes bipolar disorder, anxiety/depression, migraine headaches, vertigo, chronic lower back pain. Patient presents to emergency department with complaints of chest pain. Patient presented to the emergency department on 05/20/2018 with complaints of acute onset of substernal chest pain. Upon arrival to the emergency department, she was found to have inferior ST elevation with ongoing chest pain symptoms, radiation to the jaw and the left arm, associated with diaphoresis, shortness of breath, and nausea. ST elevation myocardial infarction alert was initiated. Patient was taken to cardiac dentures lab technician on with Dr. Zamora cardiac catheterization confirmed occlusion 1 mild nonobstructing coronary disease. 2 normal left ventricular systolic function. 3 normal ascending aorta. Per Dr. Zamora's cardiac cath report it appears that patient's symptoms are noncardiac in etiology could have been a vasospasm but the EKG has J-point elevation and has concave ST elevation patient, probably normal variant. Patient reports feeling, "a little tired," but offers no other complaints at this time. Patient denies chest pain, SOB, N/V/D/C, fevers or chills. PMH: bipolar disorder, anxiety/depression, migraine headaches, vertigo, chronic lower back pain Past surgical history: Bilateral cataract removal, left breast lumpectomy, cholecystectomy, medial nerve decompression FMH: Early CAD Social history: - Diagnosis (1) Chest pain Review of Systems All other systems reviewed negative except as stated in HPI [facility] - History History Provided By: Patient - Medical History Medical History: Medical History (Last Reviewed 05/20/18 @ 12:26 by Simon Adam MD) Anxiety Bipolar 1 disorder Hypercholesterolemia - Surgical History Surgical History: Surgical History (Last Reviewed 05/20/18 @ 12:26 by Simon Adam MD) History of cholecystectomy - Tobacco History Second Hand Smoke Exposure: Yes Tobacco Use In Past 30 Days: Yes Smoking Status: Current some day smoker Tobacco Type: Cigarettes - Alcohol History How Often Do You Have a Drink Containing Alcohol: Never - Substance Use History Substance History: No History of Abuse - Travel History Recent Travel in the [facility] Within the Last 8 Weeks: No Recent Travel Out of the Country Within the Last 8 Weeks: No Medications and Allergies Allergies Allergy/AdvReac Type Severity Reaction Status Date / Time No Known Allergies Allergy Verified 05/20/18 12:23 Home Medications Medication Instructions Recorded Confirmed Type alprazolam 1 mg PO BID 05/20/18 05/20/18 History [id number] 1 cap PO Q4H PRN MDD 25 05/20/18 05/20/18 History [Fioricet] duloxetine [Cymbalta] 60 mg PO DAILY 05/20/18 05/20/18 History lamotrigine [Lamictal] 400 mg PO HS 05/20/18 05/20/18 History meclizine 25 mg PO DAILY PRN 05/20/18 05/20/18 History mirtazapine 45 mg PO DAILY 05/20/18 05/20/18 History quetiapine 50 mg PO HS 05/20/18 05/20/18 History Active Medications: Active Medications Atropine Sulfate (Atropine Inj) 0.5 mg IV.PUSH UNSCH PRN PRN Reason: VAGAL REPONSE Duloxetine HCl (Cymbalta) 60 mg PO DAILY [facility] Last Admin: 05/21/18 08:54 Dose: 60 mg Sodium Chloride (Ns Inj) 1,000 mls @ 30 mls/hr IV.SIG .Q24H GLEN Stop: 05/21/18 12:29 Lamotrigine (Lamictal) 400 mg PO [facility] Last Admin: 05/20/18 20:54 Dose: 400 mg Lidocaine HCl (Xylocaine 1% Inj (50 Ml)) 10 ml INFILTRATN UNSCH PRN PRN Reason: SHEATH REMOVAL Stop: 05/21/18 13:04 Lorazepam (Ativan Inj) 0.5 mg IV.PUSH UNSCH PRN PRN Reason: ANXIETY Stop: 05/21/18 13:04 Lorazepam (Ativan) 0.5 mg PO Q12H PRN PRN Reason: ANXIETY Last Admin: 05/20/18 20:52 Dose: 0.5 mg Mirtazapine (Remeron) 45 mg PO DAILY [facility] Last Admin: 05/21/18 08:54 Dose: 45 mg Oxycodone/Acetaminophen (Percocet 5/325 Mg) 1 tab PO Q4H PRN PRN Reason: PAIN SCALE 1 TO 4 Last Admin: 05/20/18 20:52 Dose: 1 tab Oxycodone/Acetaminophen (Percocet 5/325 Mg) 2 tab PO Q4H PRN PRN Reason: PAIN SCALE 5 TO 10 Quetiapine Fumarate (Seroquel) 50 mg PO HS [facility] Last Admin: 05/20/18 20:54 Dose: 50 mg Sodium Chloride (Ns Flush) 2 ml IV.FLUSH BID [facility] Last Admin: 05/21/18 08:54 Dose: 2 ml Sodium Chloride (Ns Flush) 2 ml IV.FLUSH PRN PRN PRN Reason: FLUSH AFTER USING IV ACCESS Exam Vital signs: Vital Signs 05/20/18 12:15 05/20/18 12:21 05/20/18 12:23 Temperature 99 F Pulse Rate 100 H Respiratory Rate 24 Blood Pressure 145/86 H Pulse Oximetry 97 98 97 05/20/18 14:00 05/20/18 14:14 05/20/18 15:13 Temperature 98.1 F Pulse Rate 99 H 100 H 100 H Respiratory Rate 20 Blood Pressure 152/78 H Pulse Oximetry 95 94 L 05/20/18 15:36 05/20/18 15:56 05/20/18 16:00 Temperature 98.2 F 98.2 F Pulse Rate 100 H 100 H 87 Respiratory Rate 20 20 Blood Pressure 146/70 H 146/74 H Pulse Oximetry 94 L 94 L 05/20/18 17:00 05/20/18 18:00 05/20/18 18:14 Temperature Pulse Rate 95 H 97 H Respiratory Rate Blood Pressure Pulse Oximetry 94 L 05/20/18 19:30 05/20/18 20:00 05/20/18 21:00 Temperature 98.4 F Pulse Rate 91 H 98 H 96 H Respiratory Rate 19 Blood Pressure 159/88 H Pulse Oximetry 95 05/20/18 22:00 05/20/18 23:00 05/20/18 23:30 Temperature 98.2 F Pulse Rate 99 H 87 86 Respiratory Rate 18 Blood Pressure 122/60 Pulse Oximetry 92 L 05/21/18 00:15 05/21/18 01:17 05/21/18 02:45 Temperature Pulse Rate 87 87 80 Respiratory Rate Blood Pressure Pulse Oximetry 05/21/18 03:00 05/21/18 04:39 05/21/18 05:43 Temperature 98.1 F Pulse Rate 76 77 76 Respiratory Rate 20 Blood Pressure 145/70 H Pulse Oximetry 94 L 05/21/18 06:11 Temperature Pulse Rate 79 Respiratory Rate Blood Pressure Pulse Oximetry Intake & Output 05/20/18 05/21/18 05/21/18 18:59 06:59 18:59 Intake Total 480 / 480 480 / 480 Output Total 350 / 350 1400 / 1400 Balance 130 / 130 -920 / -920 Weight 72.575 kg Intake: Oral 480 / 480 480 / 480 Output: Urine 350 / 350 1400 / 1400 Other: Date of Last Bowel Movement 05/19/18 Narrative: GENERAL: This is a well-nourished, well-developed patient, in no apparent distress. CARDIOVASCULAR: Regular rate and rhythm RESPIRATORY: Clear to auscultation. Breath sounds equal bilaterally. GASTROINTESTINAL: Abdomen soft, non-tender, nondistended. Normal active bowel sounds MUSCULOSKELETAL: Extremities without clubbing, cyanosis, or edema. NEURO: Alert & Oriented x4 to person, place, time, situation. Moves all ext x4 Results - Labs CBC & Chem 7: 05/21/18 05:39 05/21/18 05:39 Labs: Short CBC 05/20/18 05/21/18 Range/Units 12:25 05:39 WBC 14.2 H 12.4 H (4.0-11.0) th/mm3 Hgb 14.1 13.8 (11.6-15.3) gm/dL Hct 43.3 41.7 (35.0-46.0) % Plt Count 345 286 (150-450) th/mm3 [facility] 05/20/18 05/21/18 12:25 05:39 Sodium 142 141 Potassium 4.9 4.0 D Chloride 110 H 106 Carbon Dioxide 23.1 27.3 BUN 11 8 Creatinine 0.74 0.64 Calcium 8.3 L 9.2 D Cardiac Enzymes 05/20/18 Range/Units 12:25 Total Creatine Kinase 50 (26-192) U/L Troponin I Less than 0.02 L (0.02-0.05) ng/mL Liver Function 05/20/18 Range/Units 12:25 Total Bilirubin 0.2 (0.2-1.0) mg/dL AST 10 L (15-37) U/L ALT 15 (10-53) U/L Alkaline Phosphatase 96 (45-117) U/L Albumin 3.2 L (3.4-5.0) g/dL Caprini VTE Risk Assessment Caprini VTE Risk Assessment: No/Low Risk (score <= 1) Caprini Risk Assessment Model: Point Value = 1 Point Value = 2 Point Value = 3 Point Value = 5 Age 41-60 Minor surgery BMI > 25 kg/m2 Swollen legs Varicose veins or History of unexplained or recurrent spontaneous Oral contraceptives or hormone replacement Sepsis (< 1 month) Serious lung disease, including pneumonia (< 1 month) Abnormal pulmonary function Acute myocardial infarction Congestive heart failure (< 1 month) History of inflammatory bowel disease Medical patient at bed rest Age 61-74 Arthroscopic surgery Major open surgery (> 45 min) Laparoscopic surgery (> 45 min) Malignancy Confined to bed (> 72 hours) Immobilizing plaster cast Central venous access Age >= 75 History of VTE Family history of VTE Factor V Leiden Prothrombin [id number] Lupus anticoagulant Anticardiolipin antibodies Elevated serum homocysteine Heparin-induced thrombocytopenia Other congenital or acquired thrombophilia Stroke (< 1 month) Elective arthroplasty Hip, pelvis, or leg fracture Acute spinal cord injury (< 1 month) Prophylaxis Regimen: Total Risk Factor Score Risk Level Prophylaxis Regimen 0-1 Low Early ambulation 2 Moderate Order ONE of the following: *Sequential Compression Device (SCD) *Heparin 5000 units SQ BID 3-4 Higher Order ONE of the following medications: *Heparin 5000 units SQ TID *Enoxaparin/Lovenox 40 mg SQ daily (WT < 150 kg, CrCl > 30 mL/min) *Enoxaparin/Lovenox 30 mg SQ daily (WT < 150 kg, CrCl > 10-29 mL/min) *Enoxaparin/Lovenox 30 mg SQ BID (WT < 150 kg, CrCl > 30 mL/min) AND/OR *Sequential Compression Device (SCD) 5 or more Highest Order ONE of the following medications: *Heparin 5000 units SQ TID (Preferred with Epidurals) *Enoxaparin/Lovenox 40 mg SQ daily (WT < 150 kg, CrCl > 30 mL/min) *Enoxaparin/Lovenox 30 mg SQ daily (WT < 150 kg, CrCl > 10-29 mL/min) *Enoxaparin/Lovenox 30 mg SQ BID (WT < 150 kg, CrCl > 30 mL/min) AND *Sequential Compression Device (SCD) Assessment and Plan - Assessment (1) Chest pain Code(s): R07.9 - Chest pain, unspecified Status: Acute Plan: Chest pain initially thought to be ST elevation [place] - This a 53-year-old female patient with past medical history which includes bipolar disorder, anxiety/depression, migraine headaches, vertigo, chronic lower back pain. Patient presents to emergency department with complaints of chest pain. Patient presented to the emergency department on 05/20/2018 with complaints of acute onset of substernal chest pain. Upon arrival to the emergency department, she was found to have inferior ST elevation with ongoing chest pain symptoms, radiation to the jaw and the left arm, associated with diaphoresis, shortness of breath, and nausea. ST elevation myocardial infarction alert was initiated. - Patient was taken to cardiac dentures lab technician on 05/[address] Zamora cardiac catheterization confirmed occlusion 1 mild nonobstructing coronary disease. 2 normal left ventricular systolic function. 3 normal ascending aorta. Per Dr. Zamora's cardiac cath report it appears that patient's symptoms are noncardiac in etiology could have been a vasospasm but the EKG has J-point elevation and has concave ST elevation patient, probably normal variant. -Chest pain likely related to anxiety patient is no longer having chest pain at this point Plan to discharge patient home will need to follow-up with PCP after discharge Bipolar disorder Continue patient's home medications Anxiety Ativan as needed DVT prophylaxis with SCDs H&P: Quality - VTE Deep Vein Thrombosis/Pulmonary Embolism Present on Admission: No <Eliezer Gonzalez - Last Filed: 06/06/18 23:21> History of Present Illness Primary Care Physician: No Primary Care Physician - Diagnosis (1) Chest pain Inpatient Certification: I certify that the inpatient services were ordered in accordance with Medicare regulations governing the order. This includes certification that hospital inpatient services are reasonable and necessary and in the case of services not specified as inpatient-only under 42 CFR 419.22(n), that they are appropriately provided as inpatient services in accordance to with the 2-midnight benchmark under 43 CFR 412.3(e) [facility] - Medical History Medical History: Medical History (Last Reviewed 05/20/18 @ 12:26 by Simon Adam MD) Anxiety Bipolar 1 disorder Hypercholesterolemia - Surgical History Surgical History: Surgical History (Last Reviewed 07/06/18 @ 12:26 by Simon Adam MD) History of cholecystectomy Results - Labs CBC & Chem 7: 05/21/18 05:39 05/21/18 05:39 Caprini VTE Risk Assessment Caprini Risk Assessment Model: Point Value = 1 Point Value = 2 Point Value = 3 Point Value = 5 Age 41-60 Minor surgery BMI > 25 kg/m2 Swollen legs Varicose veins or History of unexplained or recurrent spontaneous Oral contraceptives or hormone replacement Sepsis (< 1 month) Serious lung disease, including pneumonia (< 1 month) Abnormal pulmonary function Acute myocardial infarction Congestive heart failure (< 1 month) History of inflammatory bowel disease Medical patient at bed rest Age 61-74 Arthroscopic surgery Major open surgery (> 45 min) Laparoscopic surgery (> 45 min) Malignancy Confined to bed (> 72 hours) Immobilizing plaster cast Central venous access Age >= 75 History of VTE Family history of VTE Factor V Leiden Prothrombin [id number] Lupus anticoagulant Anticardiolipin antibodies Elevated serum homocysteine Heparin-induced thrombocytopenia Other congenital or acquired thrombophilia Stroke (< 1 month) Elective arthroplasty Hip, pelvis, or leg fracture Acute spinal cord injury (< 1 month) Prophylaxis Regimen: Total Risk Factor Score Risk Level Prophylaxis Regimen 0-1 Low Early ambulation 2 Moderate Order ONE of the following: *Sequential Compression Device (SCD) *Heparin 5000 units SQ BID 3-4 Higher Order ONE of the following medications: *Heparin 5000 units SQ TID *Enoxaparin/Lovenox 40 mg SQ daily (WT < 150 kg, CrCl > 30 mL/min) *Enoxaparin/Lovenox 30 mg SQ daily (WT < 150 kg, CrCl > 10-29 mL/min) *Enoxaparin/Lovenox 30 mg SQ BID (WT < 150 kg, CrCl > 30 mL/min) AND/OR *Sequential Compression Device (SCD) 5 or more Highest Order ONE of the following medications: *Heparin 5000 units SQ TID (Preferred with Epidurals) *Enoxaparin/Lovenox 40 mg SQ daily (WT < 150 kg, CrCl > 30 mL/min) *Enoxaparin/Lovenox 30 mg SQ daily (WT < 150 kg, CrCl > 10-29 mL/min) *Enoxaparin/Lovenox 30 mg SQ BID (WT < 150 kg, CrCl > 30 mL/min) AND *Sequential Compression Device (SCD) Assessment and Plan - Assessment (1) Chest pain Code(s): R07.9 - Chest pain, unspecified Status: Acute - Attending Attestation Patient examined. Assessment and plan formulated with Zahira Rg PA-C. I agree with the above.
--- NOTE | 2018-05-21 10:36 | ECG ---
Date Performed: 05/20/2018 Time Performed: 15:50:22 PTAGE: 53 years EKG: Sinus rhythm . Normal ECG PREVIOUS TRACING : 05/20/2018 12.15 No significant change from previous tracing noted. DOCTOR: Adalberto Kim Interpretating Date/Time 05/21/2018 10:34:33
--- NOTE | 2018-05-21 10:45 | ECG ---
Date Performed: 05/20/2018 Time Performed: 12:15:52 PTAGE: 53 years EKG: Sinus rhythm ST ELEVATION, CONSIDER EARLY REPOLARIZATION NO PREVIOUS TRACING DOCTOR: Adalberto Kim Interpretating Date/Time 05/21/2018 10:44:29
--- NOTE | 2018-05-21 12:36 | P.DS ---
<Zahira Rg W - Last Filed: 05/21/18 12:34> Date of admission: 05/20/18 12:39 Primary care physician: No Primary Care Physician Attending physician on discharge: Eliezer Gonzalez Anticipated date of discharge: 05/21/18 Brief History from admission: This a 53-year-old female patient with past medical history which includes bipolar disorder, anxiety/depression, migraine headaches, vertigo, chronic lower back pain. Patient presents to emergency department with complaints of chest pain. Patient presented to the emergency department on 05/20/2018 with complaints of acute onset of substernal chest pain. Upon arrival to the emergency department, she was found to have inferior ST elevation with ongoing chest pain symptoms, radiation to the jaw and the left arm, associated with diaphoresis, shortness of breath, and nausea. ST elevation myocardial infarction alert was initiated. Patient was taken to cardiac rn labor delivery on with Dr. Zamora cardiac catheterization confirmed occlusion 1 mild nonobstructing coronary disease. 2 normal left ventricular systolic function. 3 normal ascending aorta. Per Dr. Zamora's cardiac cath report it appears that patient's symptoms are noncardiac in etiology could have been a vasospasm but the EKG has J-point elevation and has concave ST elevation patient, probably normal variant. Patient reports feeling, "a little tired," but offers no other complaints at this time. Patient denies chest pain, SOB, N/V/D/C, fevers or chills. PMH: bipolar disorder, anxiety/depression, migraine headaches, vertigo, chronic lower back pain Past surgical history: Bilateral cataract removal, left breast lumpectomy, cholecystectomy, medial nerve decompression FMH: Early CAD Social history: DS: Diagnosis - Discharge Diagnosis (1) Chest pain Status: Acute DS: Summary Hospital Course: Chest pain initially thought to be ST elevation [place] - This a 53-year-old female patient with past medical history which includes bipolar disorder, anxiety/depression, migraine headaches, vertigo, chronic lower back pain. Patient presents to emergency department with complaints of chest pain. Patient presented to the emergency department on 05/20/2018 with complaints of acute onset of substernal chest pain. Upon arrival to the emergency department, she was found to have inferior ST elevation with ongoing chest pain symptoms, radiation to the jaw and the left arm, associated with diaphoresis, shortness of breath, and nausea. ST elevation myocardial infarction alert was initiated. - Patient was taken to cardiac rn labor delivery on 05/[address] Zamora cardiac catheterization confirmed occlusion 1 mild nonobstructing coronary disease. 2 normal left ventricular systolic function. 3 normal ascending aorta. Per Dr. Zamora's cardiac cath report it appears that patient's symptoms are noncardiac in etiology could have been a vasospasm but the EKG has J-point elevation and has concave ST elevation patient, probably normal variant. -Chest pain likely related to anxiety patient is no longer having chest pain at this point Plan to discharge patient home will need to follow-up with PCP, cardiology and GI after discharge Bipolar disorder Continue patient's home medications Anxiety Ativan as needed DVT prophylaxis with SCDs - Time Spent with Patient Total time spent providing and/or coordinating discharge services: Greater than 30 minutes - Quality: VTE Deep Vein Thrombosis/Pulmonary Embolism Present on Admission: No Exam Vital signs: Vital Signs 05/20/18 14:00 05/20/18 14:14 05/20/18 15:13 Temperature 98.1 F Pulse Rate 99 H 100 H 100 H Respiratory Rate 20 Blood Pressure 152/78 H Pulse Oximetry 95 94 L 05/20/18 15:36 05/20/18 15:56 05/20/18 16:00 Temperature 98.2 F 98.2 F Pulse Rate 100 H 100 H 87 Respiratory Rate 20 20 Blood Pressure 146/70 H 146/74 H Pulse Oximetry 94 L 94 L 05/20/18 17:00 05/20/18 18:00 05/20/18 18:14 Temperature Pulse Rate 95 H 97 H Respiratory Rate Blood Pressure Pulse Oximetry 94 L 05/20/18 19:30 05/20/18 20:00 05/20/18 21:00 Temperature 98.4 F Pulse Rate 91 H 98 H 96 H Respiratory Rate 19 Blood Pressure 159/88 H Pulse Oximetry 95 05/20/18 22:00 05/20/18 23:00 05/20/18 23:30 Temperature 98.2 F Pulse Rate 99 H 87 86 Respiratory Rate 18 Blood Pressure 122/60 Pulse Oximetry 92 L 05/21/18 00:15 05/21/18 01:17 05/21/18 02:45 Temperature Pulse Rate 87 87 80 Respiratory Rate Blood Pressure Pulse Oximetry 05/21/18 03:00 05/21/18 04:39 05/21/18 05:43 Temperature 98.1 F Pulse Rate 76 77 76 Respiratory Rate 20 Blood Pressure 145/70 H Pulse Oximetry 94 L 05/21/18 06:11 05/21/18 07:00 05/21/18 08:00 Temperature 98.2 F Pulse Rate 79 83 72 Respiratory Rate 16 Blood Pressure 144/82 H Pulse Oximetry 93 L 05/21/18 09:00 05/21/18 10:00 05/21/18 11:00 Temperature 98.4 F Pulse Rate 74 87 75 Respiratory Rate 16 Blood Pressure 135/65 Pulse Oximetry 94 L 05/21/18 12:00 Temperature Pulse Rate 85 Respiratory Rate Blood Pressure Pulse Oximetry Intake & Output 05/20/18 05/21/18 05/21/18 18:59 06:59 18:59 Intake Total 480 / 480 480 / 480 Output Total 350 / 350 1400 / 1400 Balance 130 / 130 -920 / -920 Weight 72.575 kg Intake: Oral 480 / 480 480 / 480 Output: Urine 350 / 350 1400 / 1400 Other: Date of Last Bowel Movement 05/19/18 Narrative: GENERAL: This is a well-nourished, well-developed patient, in no apparent distress. CARDIOVASCULAR: Regular rate and rhythm RESPIRATORY: Clear to auscultation. Breath sounds equal bilaterally. GASTROINTESTINAL: Abdomen soft, non-tender, nondistended. Normal active bowel sounds MUSCULOSKELETAL: Extremities without clubbing, cyanosis, or edema. NEURO: Alert & Oriented x4 to person, place, time, situation. Moves all ext x4 Results Procedures completed during hospitalization: cardiac cath 05/20/[address] Zamora Labs on day of discharge: Labs from last 24 hours 05/21/18 05/21/18 05/20/18 05:39 05:39 12:25 WBC 12.4 H 14.2 H RBC 4.73 4.83 Hgb 13.8 14.1 POC Hgb (Calc) Hct 41.7 43.3 POC Hct MCV 88.3 89.6 MCH 29.2 29.3 MCHC 33.0 32.7 RDW 13.4 13.5 Plt Count 286 345 MPV 7.6 7.9 Neut % (Auto) 60.1 67.7 Lymph % (Auto) 31.8 24.1 [place] % (Auto) 4.7 5.9 Eos % (Auto) 2.7 1.8 Baso % (Auto) 0.7 0.5 Neut # (Auto) 7.5 9.6 H Lymph # (Auto) 4.0 3.4 [place] # (Auto) 0.6 0.8 Eos # (Auto) 0.3 0.3 Baso # (Auto) 0.1 0.1 WBC Differential . . Differential Comment Auto diff final Auto diff final PT INR APTT POC Sodium Sodium 141 POC Potassium Potassium 4.0 D POC Chloride Chloride 106 Carbon Dioxide 27.3 Anion Gap 8 POC BUN BUN 8 Creatinine 0.64 POC Creatinine Estimated GFR Greater than 89 POC Glucose Random Glucose 88 Calcium 9.2 D Magnesium Total Bilirubin AST ALT Alkaline Phosphatase Total Creatine Kinase Troponin I B-Natriuretic Peptide Total Protein Albumin 05/20/18 05/20/18 05/20/18 12:25 12:25 12:25 WBC RBC Hgb POC Hgb (Calc) Hct POC Hct MCV MCH MCHC RDW Plt Count MPV Neut % (Auto) Lymph % (Auto) [place] % (Auto) Eos % (Auto) Baso % (Auto) Neut # (Auto) Lymph # (Auto) [place] # (Auto) Eos # (Auto) Baso # (Auto) WBC Differential Differential Comment PT 9.8 INR 1.0 APTT 23.8 L POC Sodium Sodium 142 POC Potassium Potassium 4.9 POC Chloride Chloride 110 H Carbon Dioxide 23.1 Anion Gap 9 POC BUN BUN 11 Creatinine 0.74 POC Creatinine Estimated GFR 82 L POC Glucose Random Glucose 109 H Calcium 8.3 L Magnesium 2.0 Total Bilirubin 0.2 AST 10 L ALT 15 Alkaline Phosphatase 96 Total Creatine Kinase 50 Troponin I Less than 0.02 L B-Natriuretic Peptide 5 Total Protein 6.6 Albumin 3.2 L 05/20/18 12:25 WBC RBC Hgb POC Hgb (Calc) 13.9 Hct POC Hct 41.0 MCV MCH MCHC RDW Plt Count MPV Neut % (Auto) Lymph % (Auto) [place] % (Auto) Eos % (Auto) Baso % (Auto) Neut # (Auto) Lymph # (Auto) [place] # (Auto) Eos # (Auto) Baso # (Auto) WBC Differential Differential Comment PT INR APTT POC Sodium 141 Sodium POC Potassium 4.9 Potassium POC Chloride 105 Chloride Carbon Dioxide Anion Gap POC BUN 11 BUN Creatinine POC Creatinine 0.7 Estimated GFR POC Glucose 111 H Random Glucose Calcium Magnesium Total Bilirubin AST ALT Alkaline Phosphatase Total Creatine Kinase Troponin I B-Natriuretic Peptide Total Protein Albumin <Eliezer Gonzalez - Last Filed: 06/06/18 23:22> Date of admission: 05/20/18 12:39 Primary care physician: Sloane Primary Care Physician DS: Diagnosis - Discharge Diagnosis (1) Chest pain Status: Acute DS: Summary Hospital Course: Patient examined. Assessment and plan formulated with Zahira Rg PA-C. I agree with the above. - Time Spent with Patient Total time spent providing and/or coordinating discharge services: Greater than 30 minutes Discharge Plan - Discharge Order Discharge Orders: Discharge Order (Routine); Ordered 05/21/18 Ordered By: Zahira Rg - Discharge Details Discharge Comment: chest pain - Physicians Team Primary Care Provider: Primary Care Sloane Goyal Attending Provider: Eliezer Gonzalez
== END 2018-05-21 13:58 | disposition home or self-care (01) ==
LOC: NEPE 12:13 → NEDA 12:33 → HCPC 13:48
PROVIDERS: ADMIT Hospitalist; ATTEND Hospitalist